=== PATIENT | male | born 1950 | race Caucasian/White ===

== ENCOUNTER → 2019-07-04 13:12 | Outpatient (CLI) | payer MEDICARE, SELFPAY ==
[2019-07-06 11:27] LABS: PSA, Free 1.64 ng/mL
== END ==
PROVIDERS: Visit Provider Urology
DX: R97.20 Elevated prostate specific antigen [PSA] (principal)
CPT/HCPCS: 36415; 84153; 84154

== ENCOUNTER → 2020-01-05 15:26 | Outpatient (CLI) | payer MEDICARE, SELFPAY ==
[2020-01-07 16:08] LABS: PSA, Free 0.74 ng/mL
== END ==
PROVIDERS: Visit Provider Urology
DX: R97.20 Elevated prostate specific antigen [PSA] (principal)
CPT/HCPCS: 36415; 84153; 84154

== ENCOUNTER → 2020-07-05 14:09 | Outpatient (CLI) | payer MEDICARE, SELFPAY ==
[2020-07-07 12:30] LABS: PSA, Free 0.75 ng/mL; Prostate Specific Ag 5.6 ng/mL (0.0-4.0)
== END ==
PROVIDERS: Visit Provider Urology
DX: R97.20 Elevated prostate specific antigen [PSA] (principal)
CPT/HCPCS: 36415; 84153; 84154

== ENCOUNTER → 2021-11-04 11:02 | Outpatient (CLI) | payer MEDICARE, SELFPAY ==
[2021-11-05 08:15] LABS: PSA, Free 0.51 ng/mL; Prostate Specific Ag 5.6 ng/mL (0.0-4.0)
== END ==
PROVIDERS: Visit Provider Urology
DX: R97.20 Elevated prostate specific antigen [PSA] (principal)
CPT/HCPCS: 36415; 84153; 84154